=== PATIENT | female | born 1970 | race Caucasian/White ===

== ENCOUNTER 2017-01-02 18:08 | Emergency (ER) | payer OTHER ==
[~2017-01-02] VITALS: Ht 162.6 cm; Wt 50.7 kg
[~2017-01-02 18:08] MED LIST: ALEN70TA5 PO; ATOR20TA9 PO; ATOR40TA PO; BACL-19 PO; BUSP10TA PO; CARB200T4 PO; DIAZ10TA PO; FAMO20TA7 PO; FLUO40CA9 PO; FLUT1AER INH; FLUT9.9S NS; HYDR-3144 PO; HYDR-3307 PO; HYDR25CA PO; IBUP-1222 PO; LEVE500T53 PO; LEVO50TA PO; OMEP40CA6 PO; PREG150C PO; TIOT18CA INH; TOPI25TA32 PO; ZOLP10TA PO; [UNRECOGNIZED DRUG - OTHER]; [UNRECOGNIZED DRUG - OTHER] PO
[2017-01-02] MEDS ORDERED: HYDROmorphone 1 MG/ML, 1ML IM STA (20:08)
[2017-01-02] MEDS ORDERED: HYDROmorphone 1 MG/ML, 1ML ONE (20:09)
[2017-01-02 20:50] VITALS: BP 132/79
== END 2017-01-02 20:58 | disposition home or self-care (01) ==
LOC: ED 20:35
DX: S76.012A Strain of muscle, fascia and tendon of left hip, initial encounter (principal); G89.29 Other chronic pain; M54.9 Dorsalgia, unspecified; I10 Essential (primary) hypertension; M41.9 Scoliosis, unspecified; F43.10 Post-traumatic stress disorder, unspecified; Z88.5 Allergy status to narcotic agent; Z88.1 Allergy status to other antibiotic agents; Z88.8 Allergy status to other drugs, medicaments and biological substances; W01.0XXA Fall on same level from slipping, tripping and stumbling without subsequent striking against object, initial encounter; Y93.01 Activity, walking, marching and hiking; Y99.8 Other external cause status; Y92.89 Other specified places as the place of occurrence of the external cause
CPT/HCPCS: 73502; 96372; 99284; J1170

== ENCOUNTER 2017-05-31 19:28 | Emergency (ER) | payer OTHER ==
[~2017-05-31] VITALS: Ht 162.6 cm; Wt 50.5 kg
[~2017-05-31 19:28] MED LIST changes: -HYDR-3144 PO; +HYDR-3245 PO
[2017-05-31 20:01] LABS: HEMATOCRIT 37.8 % (34.6-47.8); HEMOGLOBIN 13.1 g/dL (11.7-16.4); WHITE BLOOD COUNT 7.8 x10^3/uL (3.4-10)
[2017-05-31 20:11] LABS: ASPARTATE AMINO TRANSFERASE 24 U/L (15-37); BLOOD UREA NITROGEN 19 mg/dL (7-18)
[2017-05-31 20:15] LABS: IS PT STATUS REG ER OR PRE ER? YES
[2017-05-31 21:18] VITALS: BP 93/60
[2017-05-31] MEDS ORDERED: SODIUM CHLORIDE 0.9% 1,000ML IVBOLUS ONE (22:00)
[2017-06-01] MEDS ORDERED: OMNIPAQUE 350 MG/ML, 100ML BOTTLE ONE (02:52)
== END 2017-05-31 22:15 | disposition home or self-care (01) ==
LOC: ED 20:55
DX: R55 Syncope and collapse (principal); R07.2 Precordial pain; S09.90XA Unspecified injury of head, initial encounter; E78.5 Hyperlipidemia, unspecified; G40.909 Epilepsy, unspecified, not intractable, without status epilepticus; G89.29 Other chronic pain; I10 Essential (primary) hypertension; J44.9 Chronic obstructive pulmonary disease, unspecified; K21.9 Gastro-esophageal reflux disease without esophagitis; Z79.82 Long term (current) use of aspirin; Z88.0 Allergy status to penicillin; Z88.2 Allergy status to sulfonamides
CPT/HCPCS: 36415; 70450; 71010; 71275; 80053; 84484; 85025; 93005; 99285; Q9967

== ENCOUNTER 2018-02-14 18:49 | Inpatient (IN) | payer OTHER ==
[~2018-02-14] VITALS: Ht 162.6 cm; Wt 59.7 kg
[~2018-02-14 18:49] MED LIST changes: +ETOMIDATE 20 MG/10 ML ONE; +PROPOFOL 10 MG/ML, 100ML IV ONE; +SUCCINYLCHOLINE 20 MG/ML, 10ML ONE
[2018-02-14 19:20] LABS: BASOPHILS # (AUTO) 0.07 x10^3/uL (0-0.1); BASOPHILS % (AUTO) 1 % (0-1); EOSINOPHILS % (AUTO) 5 % (1-7); LYMPHOCYTES # (AUTO) 2.94 x10^3/uL (1-3.4); LYMPHOCYTES % (AUTO) 36 % (22-44); MD NO; MEAN CORPUSCULAR HEMOGLOBIN 30.7 pg (27.0-34.8); MEAN CORPUSCULAR HGB CONC 33.9 g/dL (32.4-35.8); MEAN CORPUSCULAR VOLUME 90.7 fL (80-100); MEAN PLATELET VOLUME 8.6 fL (7.4-10.4); MONOCYTES # (AUTO) 0.74 x10^3/uL (0.2-0.8); MONOCYTES % (AUTO) 9 % (2-9); NEUTROPHILS % (AUTO) 50 % (42-75); PLATELET COUNT 186 x10^3/uL (130-400); RED BLOOD COUNT 4.08 x10^6/uL (3.82-5.3); RED CELL DISTRIBUTION WIDTH 14.8 % (9.6-15.2)
[2018-02-14] MEDS ORDERED: CYCL-259 PO (19:27)
[2018-02-14] MEDS ORDERED: TOPI15CA PO (19:27)
[2018-02-14] MEDS ORDERED: METH500T7 PO (19:27)
[2018-02-14] MEDS ORDERED: PREG25CA PO (19:27)
[2018-02-14 19:28] LABS: CULTURE INDICATED? NO; MICROSCOPIC NOT IND
[2018-02-14 19:28] LABS: ALANINE AMINOTRANSFERASE 76 U/L (12-78); ALBUMIN 3.7 g/dL (3.4-5.0); ANION GAP 8 mmol/L (5-15); CALCIUM 9.1 mg/dL (8.5-10.1); CHLORIDE 113 mmol/L (98-107); CREATININE 1.09 mg/dL (0.55-1.02); SALICYLATE LEVEL 4.5 mg/dL (2.8-20.0)
[2018-02-14 19:31] LABS: ALKALINE PHOSPHATASE 49 U/L (45-117); BILIRUBIN,TOTAL 0.5 mg/dL (0.2-1.0); TOTAL PROTEIN 7.3 g/dL (6.4-8.2)
[2018-02-14 19:32] LABS: ACETAMINOPHEN < 2 mcg/mL (10-30)
[2018-02-14 19:37] LABS: AMPHETAMINE SCREEN, URINE Negative (Negative); BARBITURATE SCREEN, URINE Negative (Negative); BENZODIAZEPINE SCREEN, URINE Positive (Negative); CANNABINOID SCREEN, URINE Negative (Negative); COCAINE SCREEN, URINE Negative (Negative); METHADONE SCREEN, URINE Negative (Negative); OPIATE SCREEN, URINE Positive (Negative)
[2018-02-14] MEDS ORDERED: ETOMIDATE 20 MG/10 ML IVPush ONE (20:00)
[2018-02-14] MEDS ORDERED: SUCCINYLCHOLINE 20 MG/ML, 10ML IVPush ONE (20:00)
[2018-02-14] MEDS ORDERED: PROPOFOL 100 ML IV PRN ×2 (20:01→20:30)
[2018-02-14] MEDS ORDERED: SENNA/DOCUSATE TABLET NG PRN (20:30)
[2018-02-14] MEDS ORDERED: LACTULOSE 20 GM/30 ML UDC NG PRN (20:30)
[2018-02-14] MEDS ORDERED: SENNOSIDES 8.8 MG/5 ML ORAL SOL NG PRN (20:30)
[2018-02-14] MEDS ORDERED: PHARMACY MAY ADJ FOR RENAL FX MC SCH (20:30)
[2018-02-14] MEDS ORDERED: SODIUM CHLORIDE 0.9% 1,000 ML IV ONE (20:30)
[2018-02-14] MEDS ORDERED: LIDOCAINE-MPF 1%, 2ML ENDO PRN (20:30)
[2018-02-14] MEDS ORDERED: BISACODYL 10 MG SUPP PR PRN ×2 (20:30→21:30)
[2018-02-14] MEDS ORDERED: HEPARIN 5,000 UNITS/ML, 1ML ONE (20:55)
[2018-02-14] MEDS ORDERED: FAMOTIDINE 20 MG/2 ML ONE (20:55)
[2018-02-14] MEDS: FAMOTIDINE 20 MG/2 ML IV SCH (20:57)
[2018-02-14] MEDS: HEPARIN 5,000 UNITS/ML, 1ML SQ SCH ×2 (20:57→21:15)
[2018-02-14] MEDS ORDERED: LEVETIRACETAM 500 MG TABLET PO SCH (21:00)
[2018-02-14] MEDS ORDERED: POLYETHYLENE GLYCOL 17 GM PACKET PO PRN (21:30)
[2018-02-14] MEDS ORDERED: FAMOTIDINE 20 MG/2 ML IVPush SCH (21:30)
[2018-02-14] MEDS ORDERED: PROMETHAZINE 25 MG/ML, 1ML IM PRN (21:30)
[2018-02-14] MEDS ORDERED: DOCUSATE 100 MG CAPSULE PO PRN (21:30)
[2018-02-14] MEDS ORDERED: LABETALOL 5MG/ML, 20ML IVPush PRN (21:30)
[2018-02-14] MEDS ORDERED: hydrALAzine 20 MG/ML, 1ML IVPush PRN (21:30)
[2018-02-14 21:44] LABS: HEMOGLOBIN A1C 5.3 % (4.2-6.3)
[2018-02-14 21:46] LABS: FREE T4 (FREE THYROXINE) 0.86 ng/dL (0.76-1.46); THYROID STIMULATING HORMONE 2.84 mIU/L (0.358-3.740)
[2018-02-14] MEDS: D5%-0.9% NACL+KCL 20MEQ 1,000 ML IV SCH (23:26)
[2018-02-14] MEDS: ATORVASTATIN 20 MG TABLET PO SCH (23:27)
[2018-02-15] MEDS: ALBUTEROL SULFATE 2.5 MG/3 ML NPPB SCH ×4 (01:30→10:35)
[2018-02-15] MEDS: HEPARIN 5,000 UNITS/ML, 1ML SQ SCH ×4 (04:25→21:07)
[2018-02-15 04:27] LABS: BASOPHILS # (AUTO) 0.07 x10^3/uL (0-0.1); BASOPHILS % (AUTO) 1 % (0-1); EOSINOPHILS # (AUTO) 0.27 x10^3/uL (0-0.4); EOSINOPHILS % (AUTO) 3 % (1-7); LYMPHOCYTES # (AUTO) 1.92 x10^3/uL (1-3.4); LYMPHOCYTES % (AUTO) 23 % (22-44); MD NO; MEAN CORPUSCULAR VOLUME 90.8 fL (80-100); MEAN PLATELET VOLUME 8.7 fL (7.4-10.4); MONOCYTES # (AUTO) 0.48 x10^3/uL (0.2-0.8); MONOCYTES % (AUTO) 6 % (2-9); NEUTROPHILS # (AUTO) 5.46 x10^3/uL (1.8-6.8); NEUTROPHILS % (AUTO) 67 % (42-75); PLATELET COUNT 162 x10^3/uL (130-400); RED BLOOD COUNT 3.67 x10^6/uL (3.82-5.3)
[2018-02-15] MEDS: LEVOTHYROXINE 50 MCG TABLET PO SCH (04:27)
[2018-02-15 04:36] LABS: ANION GAP 7 mmol/L (5-15); CALCIUM 7.7 mg/dL (8.5-10.1); CHLORIDE 119 mmol/L (98-107); CHOLESTEROL, TOTAL 145 mg/dL (140-239); CREATININE 0.81 mg/dL (0.55-1.02); TRIGLYCERIDES 158 mg/dL (50-200); VLDL CHOLESTEROL 32 mg/dL (0-25)
[2018-02-15 04:38] LABS: CHOL/HDL RATIO 3.9; HDL CHOL % 26 % (28-40); HDL CHOLESTEROL (DIRECT) 37 mg/dL (40-60); LDL CHOLESTEROL,CALCULATED 76 mg/dL (54-169); LDL/HDL RATIO 2.1 (0.5-3.0)
[2018-02-15] MEDS: IPRATROPIUM 0.5 MG/2.5 ML INHA HHN SCH ×2 (07:31→10:35)
[2018-02-15] MEDS: FLUTICASONE/VILANTEROL 100-25MCG/INH INH SCH (07:32)
[2018-02-15] MEDS: LEVETIRACETAM 100 MG/ML ORAL SOL PO SCH ×2 (07:56→21:12)
[2018-02-15] MEDS: FAMOTIDINE 20 MG/2 ML IV SCH ×2 (07:56→21:07)
[2018-02-15] MEDS: D5%-0.9% NACL+KCL 20MEQ 1,000 ML IV SCH (08:13)
[2018-02-15] MEDS ORDERED: ALBUTEROL/IPRATROPIUM 2.5MG/0.5MG, 3 ML INLINE SCH (15:00)
[2018-02-15] MEDS: IPRATROPIUM 0.5 MG/2.5 ML INHA NPPB SCH (21:00)
[2018-02-15] MEDS: ATORVASTATIN 20 MG TABLET PO SCH (21:00)
[2018-02-16] MEDS: IPRATROPIUM 0.5 MG/2.5 ML INHA NPPB SCH ×4 (02:59→20:46)
[2018-02-16 04:00] VITALS: BP 116/78
[2018-02-16] MEDS: HEPARIN 5,000 UNITS/ML, 1ML SQ SCH ×3 (04:41→21:12)
[2018-02-16 04:47] LABS: BASOPHILS # (AUTO) 0.05 x10^3/uL (0-0.1); BASOPHILS % (AUTO) 0 % (0-1); EOSINOPHILS # (AUTO) 0.28 x10^3/uL (0-0.4); EOSINOPHILS % (AUTO) 2 % (1-7); LYMPHOCYTES # (AUTO) 1.61 x10^3/uL (1-3.4); LYMPHOCYTES % (AUTO) 14 % (22-44); MD NO; MEAN CORPUSCULAR HEMOGLOBIN 30.5 pg (27.0-34.8); MEAN CORPUSCULAR HGB CONC 33.3 g/dL (32.4-35.8); MEAN CORPUSCULAR VOLUME 91.4 fL (80-100); MEAN PLATELET VOLUME 8.5 fL (7.4-10.4); MONOCYTES # (AUTO) 0.99 x10^3/uL (0.2-0.8); MONOCYTES % (AUTO) 8 % (2-9); NEUTROPHILS # (AUTO) 8.91 x10^3/uL (1.8-6.8); NEUTROPHILS % (AUTO) 75 % (42-75); PLATELET COUNT 151 x10^3/uL (130-400)
[2018-02-16 04:54] LABS: CALCIUM 8.1 mg/dL (8.5-10.1); CHLORIDE 118 mmol/L (98-107)
[2018-02-16 04:58] LABS: ANION GAP 6 mmol/L (5-15); CREATININE 0.67 mg/dL (0.55-1.02)
[2018-02-16] MEDS: LEVOTHYROXINE 50 MCG TABLET PO SCH (06:34)
[2018-02-16] MEDS: FLUTICASONE/VILANTEROL 100-25MCG/INH INH SCH (07:58)
[2018-02-16] MEDS: LEVETIRACETAM 100 MG/ML ORAL SOL PO SCH (07:58)
[2018-02-16] MEDS ORDERED: NICOTINE 14MG/24 HR PATCH.TD24 ONE (09:40)
[2018-02-16] MEDS ORDERED: NICOTINE 14MG/24 HR PATCH.TD24 TD ONE (10:00)
[2018-02-16 13:59] VITALS: BP 91/64
[2018-02-16 20:00] VITALS: BP 124/81
[2018-02-16] MEDS: ATORVASTATIN 20 MG TABLET PO SCH (21:12)
[2018-02-16] MEDS: LEVETIRACETAM 500 MG TABLET PO SCH (21:12)
[2018-02-17 01:48] VITALS: BP 110/75
[2018-02-17] MEDS: IPRATROPIUM 0.5 MG/2.5 ML INHA NPPB SCH ×4 (03:54→19:58)
[2018-02-17] MEDS: HEPARIN 5,000 UNITS/ML, 1ML SQ SCH ×3 (05:05→21:35)
[2018-02-17] MEDS: LEVOTHYROXINE 50 MCG TABLET PO SCH (05:05)
[2018-02-17 05:39] LABS: MEAN CORPUSCULAR HEMOGLOBIN 30.5 pg (27.0-34.8); MEAN CORPUSCULAR HGB CONC 33.8 g/dL (32.4-35.8); MEAN CORPUSCULAR VOLUME 90.4 fL (80-100); MEAN PLATELET VOLUME 9.3 fL (7.4-10.4); PLATELET COUNT 159 x10^3/uL (130-400); RED BLOOD COUNT 3.66 x10^6/uL (3.82-5.3); RED CELL DISTRIBUTION WIDTH 14.9 % (9.6-15.2)
[2018-02-17 05:49] LABS: CALCIUM 8.5 mg/dL (8.5-10.1); CHLORIDE 112 mmol/L (98-107)
[2018-02-17 05:53] LABS: ANION GAP 10 mmol/L (5-15); CREATININE 0.71 mg/dL (0.55-1.02)
[2018-02-17 06:04] LABS: BASOPHILS # (AUTO) 0.14 x10^3/uL (0-0.1); BASOPHILS % (AUTO) 1 % (0-1); EOSINOPHILS # (AUTO) 0.32 x10^3/uL (0-0.4); EOSINOPHILS % (AUTO) 2 % (1-7); LYMPHOCYTES # (AUTO) 1.75 x10^3/uL (1-3.4); LYMPHOCYTES % (AUTO) 11 % (22-44); MD SCAN; MONOCYTES % (AUTO) 7 % (2-9); NEUTROPHILS % (AUTO) 78 % (42-75)
[2018-02-17] MEDS ORDERED: POTASSIUM CHLORIDE 20 MEQ TAB.ER.PRT PO ONE (07:00)
[2018-02-17] MEDS: LEVETIRACETAM 500 MG TABLET PO SCH ×2 (07:45→21:35)
[2018-02-17] MEDS: FLUTICASONE/VILANTEROL 100-25MCG/INH INH SCH (07:45)
[2018-02-17 08:06] VITALS: BP 106/74
[2018-02-17] MEDS: AMPICILLIN/SULBACTAM 3 GM in SODIUM CHLORIDE 0.9% 100 ML IV SCH ×2 (14:13→22:50)
[2018-02-17 14:38] VITALS: BP 116/79
[2018-02-17] MEDS ORDERED: SUVO20TA PO (17:36)
[2018-02-17] MEDS ORDERED: ALEN70TA3 PO (17:40)
[2018-02-17] MEDS ORDERED: PREG50CA PO (17:44)
[2018-02-17 20:00] VITALS: BP 109/76
[2018-02-17 20:45] VITALS: BP 101/67
[2018-02-17] MEDS: FAMOTIDINE 20 MG TABLET PO SCH (21:35)
[2018-02-17] MEDS: TOPIRAMATE 100 MG TABLET PO SCH (21:35)
[2018-02-17] MEDS: ATORVASTATIN 20 MG TABLET PO SCH (21:35)
[2018-02-18 02:00] VITALS: BP 104/68
[2018-02-18] MEDS: IPRATROPIUM 0.5 MG/2.5 ML INHA NPPB SCH ×4 (03:07→21:53)
[2018-02-18 05:23] LABS: BASOPHILS # (AUTO) 0.05 x10^3/uL (0-0.1); BASOPHILS % (AUTO) 1 % (0-1); EOSINOPHILS # (AUTO) 0.21 x10^3/uL (0-0.4); EOSINOPHILS % (AUTO) 2 % (1-7); LYMPHOCYTES # (AUTO) 1.54 x10^3/uL (1-3.4); LYMPHOCYTES % (AUTO) 14 % (22-44); MD NO; MEAN CORPUSCULAR HEMOGLOBIN 30.4 pg (27.0-34.8); MEAN CORPUSCULAR HGB CONC 33.9 g/dL (32.4-35.8); MEAN CORPUSCULAR VOLUME 89.7 fL (80-100); MONOCYTES # (AUTO) 0.85 x10^3/uL (0.2-0.8); MONOCYTES % (AUTO) 8 % (2-9); NEUTROPHILS # (AUTO) 8.25 x10^3/uL (1.8-6.8); NEUTROPHILS % (AUTO) 76 % (42-75); PLATELET COUNT 172 x10^3/uL (130-400); RED BLOOD COUNT 3.59 x10^6/uL (3.82-5.3); RED CELL DISTRIBUTION WIDTH 14.8 % (9.6-15.2)
[2018-02-18 05:33] LABS: CHLORIDE 114 mmol/L (98-107)
[2018-02-18 05:37] LABS: ALBUMIN 2.9 g/dL (3.4-5.0); ANION GAP 8 mmol/L (5-15); CALCIUM 8.6 mg/dL (8.5-10.1); CREATININE 0.69 mg/dL (0.55-1.02)
[2018-02-18] MEDS: LEVOTHYROXINE 50 MCG TABLET PO SCH (06:20)
[2018-02-18] MEDS: AMPICILLIN/SULBACTAM 3 GM in SODIUM CHLORIDE 0.9% 100 ML IV SCH ×2 (06:20→14:35)
[2018-02-18] MEDS: HEPARIN 5,000 UNITS/ML, 1ML SQ SCH ×3 (06:21→22:04)
[2018-02-18] MEDS ORDERED: POTASSIUM CHLORIDE 20 MEQ TAB.ER.PRT PO ONE (06:30)
[2018-02-18 07:52] VITALS: BP 102/75
[2018-02-18] MEDS: SODIUM CHLORIDE 0.9% 1,000 ML IV SCH ×2 (08:23→17:58)
[2018-02-18] MEDS: TOPIRAMATE 100 MG TABLET PO SCH ×3 (08:23→20:30)
[2018-02-18] MEDS: LEVETIRACETAM 500 MG TABLET PO SCH ×2 (08:23→20:30)
[2018-02-18] MEDS: FAMOTIDINE 20 MG TABLET PO SCH ×2 (08:23→20:30)
[2018-02-18] MEDS: FLUTICASONE/VILANTEROL 100-25MCG/INH INH SCH (08:24)
[2018-02-18 13:05] VITALS: BP 118/83
[2018-02-18] MEDS: CEFTAROLINE 600 MG in SODIUM CHLORIDE 0.9% 100 ML IV SCH (17:58)
[2018-02-18 19:19] VITALS: BP 120/81
[2018-02-18] MEDS: ATORVASTATIN 20 MG TABLET PO SCH (20:30)
[2018-02-19 00:55] VITALS: BP 131/83
[2018-02-19] MEDS: IPRATROPIUM 0.5 MG/2.5 ML INHA NPPB SCH ×4 (03:00→21:17)
[2018-02-19] MEDS: LEVOTHYROXINE 50 MCG TABLET PO SCH (05:17)
[2018-02-19] MEDS: CEFTAROLINE 600 MG in SODIUM CHLORIDE 0.9% 100 ML IV SCH ×2 (05:17→17:53)
[2018-02-19] MEDS: HEPARIN 5,000 UNITS/ML, 1ML SQ SCH ×3 (05:17→20:20)
[2018-02-19 05:45] LABS: ALBUMIN 2.7 g/dL (3.4-5.0); ANION GAP 8 mmol/L (5-15); BASOPHILS # (AUTO) 0.06 x10^3/uL (0-0.1); BASOPHILS % (AUTO) 1 % (0-1); CALCIUM 8.5 mg/dL (8.5-10.1); CHLORIDE 117 mmol/L (98-107); CREATININE 0.79 mg/dL (0.55-1.02); EOSINOPHILS # (AUTO) 0.73 x10^3/uL (0-0.4); EOSINOPHILS % (AUTO) 8 % (1-7); LYMPHOCYTES # (AUTO) 2.08 x10^3/uL (1-3.4); LYMPHOCYTES % (AUTO) 24 % (22-44); MD NO; MEAN CORPUSCULAR HEMOGLOBIN 30.7 pg (27.0-34.8); MEAN CORPUSCULAR VOLUME 90.4 fL (80-100); MEAN PLATELET VOLUME 8.4 fL (7.4-10.4); MONOCYTES # (AUTO) 0.74 x10^3/uL (0.2-0.8); MONOCYTES % (AUTO) 9 % (2-9); NEUTROPHILS # (AUTO) 5.06 x10^3/uL (1.8-6.8); NEUTROPHILS % (AUTO) 58 % (42-75); PLATELET COUNT 186 x10^3/uL (130-400); RED BLOOD COUNT 3.59 x10^6/uL (3.82-5.3); RED CELL DISTRIBUTION WIDTH 15.3 % (9.6-15.2)
[2018-02-19] MEDS ORDERED: POTASSIUM CHLORIDE 20 MEQ TAB.ER.PRT PO ONE (06:30)
[2018-02-19 07:57] VITALS: BP 128/82
[2018-02-19] MEDS: LEVETIRACETAM 500 MG TABLET PO SCH ×2 (09:03→20:21)
[2018-02-19] MEDS: FLUTICASONE/VILANTEROL 100-25MCG/INH INH SCH (09:03)
[2018-02-19] MEDS: TOPIRAMATE 100 MG TABLET PO SCH ×3 (09:03→20:20)
[2018-02-19] MEDS: FAMOTIDINE 20 MG TABLET PO SCH ×2 (09:03→20:20)
[2018-02-19] MEDS ORDERED: NICOTINE 14MG/24 HR PATCH.TD24 ONE (09:24)
[2018-02-19] MEDS: NICOTINE 14MG/24 HR PATCH.TD24 TD SCH (09:28)
[2018-02-19] MEDS: FLUOXETINE HCL 20 MG CAPSULE PO SCH (13:24)
[2018-02-19 14:50] VITALS: BP 116/74
[2018-02-19 20:04] VITALS: BP 112/79
[2018-02-19] MEDS: ATORVASTATIN 20 MG TABLET PO SCH (20:21)
[2018-02-19] MEDS: MELATONIN 3 MG TABLET PO SCH (21:42)
[2018-02-20 00:12] VITALS: BP 107/72
[2018-02-20] MEDS: IPRATROPIUM 0.5 MG/2.5 ML INHA NPPB SCH ×4 (03:00→21:00)
[2018-02-20] MEDS: HEPARIN 5,000 UNITS/ML, 1ML SQ SCH ×3 (05:12→21:50)
[2018-02-20] MEDS: LEVOTHYROXINE 50 MCG TABLET PO SCH (05:12)
[2018-02-20] MEDS: CEFTAROLINE 600 MG in SODIUM CHLORIDE 0.9% 100 ML IV SCH ×2 (05:12→17:26)
[2018-02-20 05:31] LABS: CHLORIDE 111 mmol/L (98-107)
[2018-02-20 05:39] LABS: ANION GAP 11 mmol/L (5-15); CALCIUM 9.7 mg/dL (8.5-10.1); CREATININE 0.86 mg/dL (0.55-1.02); TRIGLYCERIDES 86 mg/dL (50-200)
[2018-02-20] MEDS ORDERED: POTASSIUM CHLORIDE 20 MEQ TAB.ER.PRT PO ONE (07:00)
[2018-02-20 08:22] VITALS: BP 112/81
[2018-02-20] MEDS: NICOTINE 14MG/24 HR PATCH.TD24 TD SCH (08:43)
[2018-02-20] MEDS: FLUOXETINE HCL 20 MG CAPSULE PO SCH (08:47)
[2018-02-20] MEDS: LEVETIRACETAM 500 MG TABLET PO SCH ×2 (08:47→21:50)
[2018-02-20] MEDS: TOPIRAMATE 100 MG TABLET PO SCH ×3 (08:47→17:25)
[2018-02-20] MEDS: FLUTICASONE/VILANTEROL 100-25MCG/INH INH SCH (08:47)
[2018-02-20] MEDS: FAMOTIDINE 20 MG TABLET PO SCH ×2 (08:47→21:50)
[2018-02-20 13:33] VITALS: BP 96/60
[2018-02-20 13:51] VITALS: BP 117/90
[2018-02-20 20:15] VITALS: BP 117/87
[2018-02-20] MEDS: MELATONIN 3 MG TABLET PO SCH (21:50)
[2018-02-20] MEDS: ATORVASTATIN 20 MG TABLET PO SCH (21:50)
[2018-02-20] MEDS: DOXYCYCLINE 100MG TABLET PO SCH (21:50)
[2018-02-20] MEDS: CEFDINIR 300 MG CAPSULE PO SCH (21:50)
[2018-02-21 01:02] VITALS: BP 108/76
[2018-02-21] MEDS: IPRATROPIUM 0.5 MG/2.5 ML INHA NPPB SCH ×4 (03:25→19:56)
[2018-02-21 05:41] LABS: CHLORIDE 112 mmol/L (98-107)
[2018-02-21] MEDS: LEVOTHYROXINE 50 MCG TABLET PO SCH (05:46)
[2018-02-21 05:47] LABS: ALBUMIN 3.5 g/dL (3.4-5.0); ANION GAP 8 mmol/L (5-15); CALCIUM 10.2 mg/dL (8.5-10.1); CREATININE 0.99 mg/dL (0.55-1.02)
[2018-02-21] MEDS: HEPARIN 5,000 UNITS/ML, 1ML SQ SCH ×3 (05:47→21:30)
[2018-02-21 07:10] VITALS: BP 104/79
[2018-02-21] MEDS: FLUTICASONE/VILANTEROL 100-25MCG/INH INH SCH (08:45)
[2018-02-21] MEDS: FLUOXETINE HCL 20 MG CAPSULE PO SCH (08:45)
[2018-02-21] MEDS: TOPIRAMATE 100 MG TABLET PO SCH ×3 (08:45→22:07)
[2018-02-21] MEDS: DOXYCYCLINE 100MG TABLET PO SCH ×2 (08:46→21:00)
[2018-02-21] MEDS: LEVETIRACETAM 500 MG TABLET PO SCH ×2 (08:46→22:07)
[2018-02-21] MEDS: NICOTINE 14MG/24 HR PATCH.TD24 TD SCH (08:46)
[2018-02-21] MEDS: CEFDINIR 300 MG CAPSULE PO SCH ×2 (08:46→22:06)
[2018-02-21] MEDS: FAMOTIDINE 20 MG TABLET PO SCH ×2 (08:46→22:07)
[2018-02-21 12:10] VITALS: BP 111/81
[2018-02-21 18:36] VITALS: BP 111/75
[2018-02-21] MEDS ORDERED: DOXYCYCLINE 100MG CAP ONE (22:00)
[2018-02-21] MEDS: ATORVASTATIN 20 MG TABLET PO SCH (22:06)
[2018-02-21] MEDS: MELATONIN 3 MG TABLET PO SCH (22:07)
[2018-02-22 00:15] VITALS: BP 101/70
[2018-02-22] MEDS: IPRATROPIUM 0.5 MG/2.5 ML INHA NPPB SCH ×4 (03:00→19:52)
[2018-02-22 05:58] LABS: ANION GAP 8 mmol/L (5-15); CALCIUM 9.4 mg/dL (8.5-10.1); CHLORIDE 109 mmol/L (98-107); CREATININE 0.96 mg/dL (0.55-1.02)
[2018-02-22] MEDS: HEPARIN 5,000 UNITS/ML, 1ML SQ SCH ×3 (06:00→19:48)
[2018-02-22 06:02] LABS: BASOPHILS # (AUTO) 0.09 x10^3/uL (0-0.1); BASOPHILS % (AUTO) 1 % (0-1); EOSINOPHILS # (AUTO) 0.64 x10^3/uL (0-0.4); EOSINOPHILS % (AUTO) 6 % (1-7); LYMPHOCYTES # (AUTO) 3.38 x10^3/uL (1-3.4); LYMPHOCYTES % (AUTO) 31 % (22-44); MD NO; MEAN CORPUSCULAR HEMOGLOBIN 30.9 pg (27.0-34.8); MEAN CORPUSCULAR VOLUME 90.7 fL (80-100); MEAN PLATELET VOLUME 8.3 fL (7.4-10.4); MONOCYTES % (AUTO) 9 % (2-9); NEUTROPHILS # (AUTO) 5.75 x10^3/uL (1.8-6.8); NEUTROPHILS % (AUTO) 53 % (42-75); PLATELET COUNT 264 x10^3/uL (130-400); RED BLOOD COUNT 4.49 x10^6/uL (3.82-5.3); RED CELL DISTRIBUTION WIDTH 15.2 % (9.6-15.2)
[2018-02-22] MEDS: LEVOTHYROXINE 50 MCG TABLET PO SCH (06:31)
[2018-02-22 07:30] VITALS: BP 123/78
[2018-02-22] MEDS: FLUTICASONE/VILANTEROL 100-25MCG/INH INH SCH (09:00)
[2018-02-22] MEDS: LEVETIRACETAM 500 MG TABLET PO SCH ×2 (09:53→20:17)
[2018-02-22] MEDS: CEFDINIR 300 MG CAPSULE PO SCH ×2 (09:53→20:17)
[2018-02-22] MEDS: DOXYCYCLINE 100MG TABLET PO SCH ×2 (09:53→20:17)
[2018-02-22] MEDS: FLUOXETINE HCL 20 MG CAPSULE PO SCH (09:54)
[2018-02-22] MEDS: FAMOTIDINE 20 MG TABLET PO SCH ×2 (09:54→20:17)
[2018-02-22] MEDS: NICOTINE 14MG/24 HR PATCH.TD24 TD SCH (09:54)
[2018-02-22] MEDS: TOPIRAMATE 100 MG TABLET PO SCH ×3 (09:54→20:17)
[2018-02-22 14:25] VITALS: BP 110/77
[2018-02-22 20:00] VITALS: BP 128/86
[2018-02-22] MEDS: MELATONIN 3 MG TABLET PO SCH (20:17)
[2018-02-22] MEDS: ATORVASTATIN 20 MG TABLET PO SCH (20:17)
[2018-02-23] MEDS: IPRATROPIUM 0.5 MG/2.5 ML INHA NPPB SCH ×2 (01:44→09:00)
[2018-02-23 02:00] VITALS: BP 99/70
[2018-02-23 05:30] LABS: BASOPHILS # (AUTO) 0.12 x10^3/uL (0-0.1); BASOPHILS % (AUTO) 1 % (0-1); EOSINOPHILS # (AUTO) 0.47 x10^3/uL (0-0.4); EOSINOPHILS % (AUTO) 5 % (1-7); LYMPHOCYTES # (AUTO) 3.36 x10^3/uL (1-3.4); LYMPHOCYTES % (AUTO) 33 % (22-44); MD NO; MEAN CORPUSCULAR HEMOGLOBIN 31.1 pg (27.0-34.8); MEAN CORPUSCULAR HGB CONC 34.1 g/dL (32.4-35.8); MEAN CORPUSCULAR VOLUME 91.4 fL (80-100); MEAN PLATELET VOLUME 7.9 fL (7.4-10.4); MONOCYTES # (AUTO) 0.86 x10^3/uL (0.2-0.8); MONOCYTES % (AUTO) 8 % (2-9); NEUTROPHILS # (AUTO) 5.51 x10^3/uL (1.8-6.8); NEUTROPHILS % (AUTO) 53 % (42-75); PLATELET COUNT 281 x10^3/uL (130-400); RED BLOOD COUNT 4.41 x10^6/uL (3.82-5.3)
[2018-02-23 05:43] LABS: ANION GAP 7 mmol/L (5-15); CALCIUM 9.1 mg/dL (8.5-10.1); CHLORIDE 109 mmol/L (98-107); CREATININE 0.88 mg/dL (0.55-1.02); TRIGLYCERIDES 70 mg/dL (50-200)
[2018-02-23] MEDS: HEPARIN 5,000 UNITS/ML, 1ML SQ SCH ×2 (06:00→14:00)
[2018-02-23] MEDS: LEVOTHYROXINE 50 MCG TABLET PO SCH (06:34)
[2018-02-23 06:47] VITALS: BP 115/79
[2018-02-23] MEDS ORDERED: POTASSIUM CHLORIDE 40 MEQ in SODIUM CHLORIDE 0.9% 500 ML IV ONE (07:30)
[2018-02-23] MEDS: LEVETIRACETAM 500 MG TABLET PO SCH (08:50)
[2018-02-23] MEDS: FLUOXETINE HCL 20 MG CAPSULE PO SCH (08:50)
[2018-02-23] MEDS: CEFDINIR 300 MG CAPSULE PO SCH (08:50)
[2018-02-23] MEDS: FAMOTIDINE 20 MG TABLET PO SCH (08:50)
[2018-02-23] MEDS: NICOTINE 14MG/24 HR PATCH.TD24 TD SCH (08:50)
[2018-02-23] MEDS: TOPIRAMATE 100 MG TABLET PO SCH (08:50)
[2018-02-23] MEDS: DOXYCYCLINE 100MG TABLET PO SCH (08:50)
[2018-02-23] MEDS ORDERED: MELA3TAB2 PO (09:59)
[2018-02-23] MEDS ORDERED: CEFD300C37 PO (09:59)
[2018-02-23] MEDS ORDERED: DOXY100T PO (09:59)
[2018-02-23] MEDS ORDERED: LEVE500T53 PO (09:59)
[2018-02-23] MEDS ORDERED: FLUO20CA8 PO (10:02)
[2018-02-23] MEDS: FLUTICASONE/VILANTEROL 100-25MCG/INH INH SCH (12:39)
[2018-02-23 13:08] VITALS: BP 108/82
== END 2018-02-23 15:25 | disposition home or self-care (01) | DRG 917 ==
LOC: ED 21:38 → EDIP 21:53 → CCU 22:04 → 4WST 02-16 08:38
PROVIDERS: ADMIT Internal Medicine; ATTEND Internal Medicine
PROC: 5A1935Z Respiratory Ventilation, Less than 24 Consecutive Hours (ICD-10-PCS; principal; 2018-02-14)
PROC: 0BH17EZ Insertion of Endotracheal Airway into Trachea, Via Natural or Artificial Opening (ICD-10-PCS; 2018-02-14)
DX: T42.4X2A Poisoning by benzodiazepines, intentional self-harm, initial encounter (principal); G92 Toxic encephalopathy; J96.00 Acute respiratory failure, unspecified whether with hypoxia or hypercapnia; J69.0 Pneumonitis due to inhalation of food and vomit; E87.2 Acidosis; F31.81 Bipolar II disorder; N17.9 Acute kidney failure, unspecified; Z99.11 Dependence on respirator [ventilator] status; T48.1X2A Poisoning by skeletal muscle relaxants [neuromuscular blocking agents], intentional self-harm, initial encounter; G40.909 Epilepsy, unspecified, not intractable, without status epilepticus; E03.9 Hypothyroidism, unspecified; E78.5 Hyperlipidemia, unspecified; F17.210 Nicotine dependence, cigarettes, uncomplicated; E86.0 Dehydration; F12.90 Cannabis use, unspecified, uncomplicated; F43.10 Post-traumatic stress disorder, unspecified; G25.81 Restless legs syndrome; G43.909 Migraine, unspecified, not intractable, without status migrainosus; I12.9 Hypertensive chronic kidney disease with stage 1 through stage 4 chronic kidney disease, or unspecified chronic kidney disease; J44.9 Chronic obstructive pulmonary disease, unspecified; K21.9 Gastro-esophageal reflux disease without esophagitis; N18.9 Chronic kidney disease, unspecified; Z90.710 Acquired absence of both cervix and uterus; Z88.2 Allergy status to sulfonamides; Z88.8 Allergy status to other drugs, medicaments and biological substances; Z91.040 Latex allergy status; Z79.899 Other long term (current) drug therapy; Z91.5 Personal history of self-harm; Z71.6 Tobacco abuse counseling; Y92.89 Other specified places as the place of occurrence of the external cause
CPT/HCPCS: 31500; 36415; 36600; 71045; 80048; 80053; 80061; 80307; 80329; 81003; 82040; 82140; 82803; 82805; 83036; 83735; 84100; 84132; 84439; 84443; 84478; 85025; 87070; 87077; 87081; 87147; 87181; 87184; 87186; 87205; 93005; 94002; 94003; 94150; 94640; 99291; J0295; J0712; J1644; J2704; J3480; J7613; J7620; J7644; G0480; J0330; J7030; J7040; S0028

== ENCOUNTER 2018-12-29 09:21 | Observation (INO) | payer MEDICARE, OTHER ==
[~2018-12-29] VITALS: Ht 162.6 cm; Wt 61.3 kg
[~2018-12-29 09:21] MED LIST changes: +ALEN70TA3 PO; -ALEN70TA5 PO; +ALEN70TA6 PO; +ATOR20TA37 PO; -ATOR20TA9 PO; +CEFD300C37 PO; +CYCL-259 PO; +DOXY100T PO; -ETOMIDATE 20 MG/10 ML ONE; +FLUO20CA8 PO; +MELA3TAB2 PO; +METH500T7 PO; +PREG25CA PO; +PREG50CA PO; -PROPOFOL 10 MG/ML, 100ML IV ONE; -SUCCINYLCHOLINE 20 MG/ML, 10ML ONE; +SUVO20TA PO; +TOPI15CA PO
[2018-12-29] MEDS ORDERED: ASPIRIN 81 MG TABLET CHEW ONE (10:26)
[2018-12-29] MEDS ORDERED: ASPIRIN 81 MG TABLET CHEW PO ONE (10:30)
[2018-12-29] MEDS ORDERED: SODIUM CHLORIDE FLUSH 10ML SYR IVF ONE (10:30)
[2018-12-29 10:48] LABS: BASOPHILS # (AUTO) 0.09 x10^3/uL (0-0.1); BASOPHILS % (AUTO) 1 % (0-1); EOSINOPHILS # (AUTO) 0.69 x10^3/uL (0-0.4); EOSINOPHILS % (AUTO) 8 % (1-7); LYMPHOCYTES # (AUTO) 2.04 x10^3/uL (1-3.4); LYMPHOCYTES % (AUTO) 25 % (22-44); MD NO; MEAN CORPUSCULAR HEMOGLOBIN 24.2 pg (27.0-34.8); MEAN CORPUSCULAR HGB CONC 31.1 g/dL (32.4-35.8); MEAN CORPUSCULAR VOLUME 77.7 fL (80-100); MEAN PLATELET VOLUME 8.6 fL (7.4-10.4); MONOCYTES % (AUTO) 7 % (2-9); NEUTROPHILS # (AUTO) 4.89 x10^3/uL (1.8-6.8); NEUTROPHILS % (AUTO) 59 % (42-75); PLATELET COUNT 235 x10^3/uL (130-400); RED BLOOD COUNT 4.44 x10^6/uL (3.82-5.3); RED CELL DISTRIBUTION WIDTH 19.1 % (9.6-15.2)
[2018-12-29 11:02] LABS: ALANINE AMINOTRANSFERASE 53 U/L (12-78); ALBUMIN 3.8 g/dL (3.4-5.0); ANION GAP 8 mmol/L (5-15); CALCIUM 9.4 mg/dL (8.5-10.1); CHLORIDE 112 mmol/L (98-107); CREATININE 1.05 mg/dL (0.55-1.02)
[2018-12-29 11:06] LABS: ALKALINE PHOSPHATASE 60 U/L (45-117); BILIRUBIN,TOTAL 0.5 mg/dL (0.2-1.0); TOTAL PROTEIN 7.7 g/dL (6.4-8.2); TROPONIN I < 0.015 ng/mL (0.000-0.045)
[2018-12-29 11:06] LABS: MICROSCOPIC NOT IND
[2018-12-29 11:08] LABS: CULTURE INDICATED? NO
--- NOTE | 2018-12-29 11:11 | NUR ---
URINE SENT TO LAB
--- NOTE | 2018-12-29 11:12 | NUR ---
PT PRESENTS TO ED WITH SHORTNESS OF BREATH. PT PLACED IN ROOM AND PLACED ON BP, CARDIAC, AND CONT. PULSE OXIMETER. ASSESSMENT COMPLETED. EKG WAS DONE IN TRIAGE. RECEIVED REPORT FROM BERE.
--- NOTE | 2018-12-29 11:37 | NUR ---
PT UP FOR RECHECK
[2018-12-29] MEDS ORDERED: FLUO60TA PO (12:25)
[2018-12-29] MEDS ORDERED: BUSP5TAB2 PO (12:28)
[2018-12-29] MEDS ORDERED: DOXE25CA PO (12:29)
[2018-12-29] MEDS ORDERED: NITROGLYCERIN 0.4 MG/SPRAY SL PRN (12:30)
[2018-12-29] MEDS ORDERED: MAALOX/HYOSCYAMINE/LIDOCAINE 45 ML BTL PO PRN (12:30)
[2018-12-29] MEDS ORDERED: NITROGLYCERIN 0.4 MG BOTTLE (25 TABS) SL PRN (12:30)
[2018-12-29] MEDS ORDERED: ACETAMINOPHEN 325 MG TABLET PO PRN (12:30)
[2018-12-29] MEDS ORDERED: FLUT1BLS INH (12:31)
--- NOTE | 2018-12-29 12:47 | NUR ---
REPORT TO CAMILLE CROOKS, PT READY FOR TRANSPORT.
[2018-12-29 13:00] VITALS: BP 131/65
[2018-12-29 13:22] VITALS: BP 131/75
[2018-12-29 13:26] LABS: CHOL/HDL RATIO 4.4; LDL/HDL RATIO 2.5 (0.5-3.0)
[2018-12-29] MEDS ORDERED: NICOTINE 21 MG/24 HR PATCH.TD24 ONE (13:29)
[2018-12-29] MEDS ORDERED: NICOTINE 21 MG/24 HR PATCH.TD24 TD ONE (13:30)
[2018-12-29] MEDS: HYDROcodone/APAP 5/325 TABLET PO PRN ×3 (13:39→21:55)
[2018-12-29] MEDS: TOPIRAMATE 100 MG TABLET PO SCH ×2 (16:00→21:59)
[2018-12-29] MEDS: OMEPRAZOLE 20 MG CAPSULE.DR PO SCH (16:00)
[2018-12-29] MEDS ORDERED: TOPIRAMATE 25 MG TABLET ONE ×2 (16:45→21:57)
[2018-12-29 20:11] VITALS: BP 121/77
[2018-12-29] MEDS: PREGABALIN 25 MG CAPSULE PO SCH (20:58)
[2018-12-29] MEDS: LEVETIRACETAM 500 MG TABLET PO SCH (20:58)
[2018-12-29] MEDS: SODIUM CHLORIDE FLUSH 10ML SYR IVF SCH (20:59)
[2018-12-29] MEDS ORDERED: ATORVASTATIN 20 MG TABLET PO SCH (21:00)
[2018-12-29 21:06] LABS: TROPONIN I < 0.015 ng/mL (0.000-0.045)
[2018-12-30 01:10] LABS: TROPONIN I < 0.015 ng/mL (0.000-0.045)
[2018-12-30 02:38] VITALS: BP 93/63
[2018-12-30 05:11] LABS: CHOL/HDL RATIO 4.3
[2018-12-30 05:12] LABS: LDL/HDL RATIO 2.1 (0.5-3.0)
[2018-12-30] MEDS: HYDROcodone/APAP 5/325 TABLET PO PRN ×2 (05:59→11:22)
[2018-12-30] MEDS: OMEPRAZOLE 20 MG CAPSULE.DR PO SCH (05:59)
[2018-12-30] MEDS ORDERED: ASPIRIN 325 MG TABLET EC PO SCH (06:00)
[2018-12-30] MEDS ORDERED: LEVOTHYROXINE 50 MCG TABLET PO SCH (06:00)
[2018-12-30 08:13] VITALS: BP 110/75
[2018-12-30] MEDS ORDERED: FLUOXETINE HCL 20 MG CAPSULE PO SCH (09:00)
[2018-12-30] MEDS: PREGABALIN 25 MG CAPSULE PO SCH (10:06)
[2018-12-30] MEDS: LEVETIRACETAM 500 MG TABLET PO SCH (10:06)
[2018-12-30] MEDS: TOPIRAMATE 100 MG TABLET PO SCH (10:06)
[2018-12-30] MEDS: SODIUM CHLORIDE FLUSH 10ML SYR IVF SCH (10:08)
[2018-12-30 13:59] VITALS: BP 125/82
== END 2018-12-30 14:48 | disposition home or self-care (01) ==
LOC: ED 12:04 → INTOOBSV 12:05 → EDIP 12:05 → UNDOADMOB 12:05 → EDIP 12:08 → ED 12:34 → EDIP 13:02 → 5SO 13:02 → UNDODISOB 12-30 14:48
PROVIDERS: ADMIT Hospitalist; ATTEND Hospitalist
DX: R07.89 Other chest pain (principal); K21.9 Gastro-esophageal reflux disease without esophagitis; F31.9 Bipolar disorder, unspecified; G43.909 Migraine, unspecified, not intractable, without status migrainosus; R06.00 Dyspnea, unspecified; I12.9 Hypertensive chronic kidney disease with stage 1 through stage 4 chronic kidney disease, or unspecified chronic kidney disease; N18.9 Chronic kidney disease, unspecified; G25.81 Restless legs syndrome; J44.9 Chronic obstructive pulmonary disease, unspecified; G40.909 Epilepsy, unspecified, not intractable, without status epilepticus; F11.20 Opioid dependence, uncomplicated; D50.0 Iron deficiency anemia secondary to blood loss (chronic); E03.9 Hypothyroidism, unspecified; E78.5 Hyperlipidemia, unspecified; R74.0 Nonspecific elevation of levels of transaminase and lactic acid dehydrogenase [LDH]; F17.210 Nicotine dependence, cigarettes, uncomplicated; F43.10 Post-traumatic stress disorder, unspecified; Z90.710 Acquired absence of both cervix and uterus; Z88.2 Allergy status to sulfonamides; Z91.040 Latex allergy status; Z88.5 Allergy status to narcotic agent; Z88.8 Allergy status to other drugs, medicaments and biological substances; Z88.6 Allergy status to analgesic agent; Z79.899 Other long term (current) drug therapy
CPT/HCPCS: 36415; 71045; 80053; 80061; 81003; 82728; 83540; 83550; 83605; 83880; 84145; 84443; 84484; 85025; 85379; 93005; 93017; 99284; G0378; 99285

== ENCOUNTER 2020-03-25 13:44 | Emergency (ER) | payer MEDICARE ==
[~2020-03-25] VITALS: Ht 162.6 cm; Wt 68.1 kg
[~2020-03-25 13:44] MED LIST changes: +BUSP5TAB2 PO; +DOXE25CA PO; +FLUO20CA23 PO; -FLUO20CA8 PO; +FLUO60TA PO; +FLUT1BLS INH; +HYDR-3246 PO; -HYDR-3307 PO; -MELA3TAB2 PO; +MELA3TAB31 PO; +OMEP40CA42 PO; -OMEP40CA6 PO; -TOPI15CA PO; +TOPI15CA10 PO
[2020-03-25 13:50] VITALS: BP 143/83
--- NOTE | 2020-03-25 14:26 | NUR ---
patient arrives with wound to left lower leg while working on deck, she has large bruised area to inside left upper ankle. she can weight bear with pain
--- NOTE | 2020-03-25 14:36 | NUR ---
xray completed, awaiting results. ice to area.
== END 2020-03-25 14:57 | disposition home or self-care (01) ==
LOC: ED 14:50
DX: S80.12XA Contusion of left lower leg, initial encounter (principal); I10 Essential (primary) hypertension; E78.5 Hyperlipidemia, unspecified; J44.9 Chronic obstructive pulmonary disease, unspecified; Z90.710 Acquired absence of both cervix and uterus; F17.210 Nicotine dependence, cigarettes, uncomplicated; X58.XXXA Exposure to other specified factors, initial encounter; Y93.89 Activity, other specified; Y92.89 Other specified places as the place of occurrence of the external cause; Y99.8 Other external cause status
CPT/HCPCS: 99283

== ENCOUNTER 2021-02-03 11:25 | Emergency (ER) | payer MEDICARE ==
[~2021-02-03] VITALS: Ht 162.6 cm; Wt 71.9 kg
[~2021-02-03 11:25] MED LIST changes: -ALEN70TA6 PO; +ALEN70TA77 PO; -CYCL-259 PO; +CYCL10TA2 PO; -HYDR-3245 PO; -HYDR-3246 PO; +HYDR-3248 PO; +HYDR1TAB53 PO; +METH-639 PO; -METH500T7 PO; -OMEP40CA42 PO; +OMEP40CA8 PO
--- NOTE | 2021-02-03 12:45 | NUR ---
data warehousing manager completed and UA sample obtained and sent chief ultrasound technologist at bedside for draw.
[2021-02-03] MEDS ORDERED: FLUT1AER INH (12:48)
[2021-02-03] MEDS ORDERED: BUSP10TA PO (12:48)
[2021-02-03] MEDS ORDERED: ALBU90AE2 INH (12:48)
[2021-02-03] MEDS ORDERED: PARO40TA3 PO (12:48)
[2021-02-03] MEDS ORDERED: DIAZ5TAB PO (12:48)
[2021-02-03 12:49] LABS: MICROSCOPIC AUTO
[2021-02-03 12:51] LABS: BASOPHILS % (AUTO) 1 % (0-1); EOSINOPHILS % (AUTO) 6 % (1-7); LYMPHOCYTES % (AUTO) 26 % (22-44); MEAN CORPUSCULAR HEMOGLOBIN 32.5 pg (27.0-34.8); MEAN CORPUSCULAR HGB CONC 34.7 g/dL (32.4-35.8); MEAN PLATELET VOLUME 8.3 fL (7.4-10.4); MONOCYTES % (AUTO) 6 % (2-9); NEUTROPHILS % (AUTO) 61 % (42-75); PLATELET COUNT 254 x10^3/uL (130-400); RED BLOOD COUNT 4.67 x10^6/uL (3.82-5.3)
--- NOTE | 2021-02-03 12:56 | NUR ---
Pt returned to room from CT without acute change while off unit.
[2021-02-03 13:04] LABS: ALANINE AMINOTRANSFERASE 31 U/L (12-78); ALBUMIN 3.8 g/dL (3.4-5.0); ANION GAP 5 mmol/L (5-15); CALCIUM 9.3 mg/dL (8.5-10.1); CHLORIDE 107 mmol/L (98-107); CREATININE 1.02 mg/dL (0.55-1.02)
[2021-02-03 13:08] LABS: ALKALINE PHOSPHATASE 95 U/L (45-117); BILIRUBIN,TOTAL 0.4 mg/dL (0.2-1.0); TOTAL PROTEIN 8.1 g/dL (6.4-8.2)
[2021-02-03 13:59] VITALS: BP 119/72
== END 2021-02-03 14:01 | disposition home or self-care (01) ==
LOC: ED 13:50
DX: M54.16 Radiculopathy, lumbar region (principal); M54.5 Low back pain; R30.0 Dysuria; R10.9 Unspecified abdominal pain; K92.1 Melena; G40.909 Epilepsy, unspecified, not intractable, without status epilepticus; I10 Essential (primary) hypertension; K21.9 Gastro-esophageal reflux disease without esophagitis; J44.9 Chronic obstructive pulmonary disease, unspecified
CPT/HCPCS: 36415; 74176; 80053; 81001; 84703; 85025; 87086; 99284

== ENCOUNTER 2021-03-03 16:29 | Emergency (ER) | payer MEDICARE, MEDICAID ==
[~2021-03-03] VITALS: Ht 162.6 cm; Wt 72.1 kg
[~2021-03-03 16:29] MED LIST changes: +ALBU90AE2 INH; +DIAZ5TAB PO; +PARO40TA3 PO
[2021-03-03 19:26] LABS: BASOPHILS % (AUTO) 0 % (0-1); EOSINOPHILS % (AUTO) 5 % (1-7); LYMPHOCYTES % (AUTO) 25 % (22-44); MEAN CORPUSCULAR HEMOGLOBIN 32.1 pg (27.0-34.8); MEAN PLATELET VOLUME 7.9 fL (7.4-10.4); MONOCYTES % (AUTO) 8 % (2-9); NEUTROPHILS % (AUTO) 62 % (42-75); PLATELET COUNT 273 x10^3/uL (130-400); RED BLOOD COUNT 4.56 x10^6/uL (3.82-5.3); RED CELL DISTRIBUTION WIDTH 15.1 % (9.6-15.2)
[2021-03-03] MEDS ORDERED: PROCHLORPERAZINE 5 MG/ML, 2ML IVPush ONE (19:30)
[2021-03-03] MEDS ORDERED: HYDROmorphone 1 MG/ML, 1ML INJ IV ONE (19:30)
[2021-03-03] MEDS ORDERED: HYDROmorphone 2 MG/ML, 1ML ONE (19:32)
[2021-03-03] MEDS ORDERED: PROCHLORPERAZINE 5 MG/ML, 2ML ONE (19:32)
[2021-03-03 19:36] LABS: ALANINE AMINOTRANSFERASE 39 U/L (12-78); ALBUMIN 3.6 g/dL (3.4-5.0); ANION GAP 5 mmol/L (5-15); CALCIUM 9.4 mg/dL (8.5-10.1); CHLORIDE 107 mmol/L (98-107)
[2021-03-03 19:41] LABS: ALKALINE PHOSPHATASE 97 U/L (45-117); BILIRUBIN,TOTAL 0.5 mg/dL (0.2-1.0); TOTAL PROTEIN 8.1 g/dL (6.4-8.2); TROPONIN I < 0.015 ng/mL (0.000-0.045)
--- NOTE | 2021-03-03 20:05 | NUR ---
Azalia Nguyen supervised straight catheterization of patient
[2021-03-03 20:21] LABS: MICROSCOPIC AUTO
[2021-03-03 21:16] VITALS: BP 137/83
== END 2021-03-03 21:24 | disposition home or self-care (01) ==
LOC: ED 19:32
DX: R07.89 Other chest pain (principal); R10.30 Lower abdominal pain, unspecified; R11.0 Nausea; R05 Cough; N30.91 Cystitis, unspecified with hematuria; F17.210 Nicotine dependence, cigarettes, uncomplicated; Z20.822 Contact with and (suspected) exposure to COVID-19
CPT/HCPCS: 36415; 71045; 80053; 81001; 84484; 85025; 87077; 87086; 87186; 93005; 96374; 96375; 99285; 99406; J0780; J1170; U0003; U0005